=== PATIENT | male | born 1965 | race Native Hawaiian/Other Pacific Islander ===

== ENCOUNTER 2018-09-02 18:43 | Inpatient (IN) | payer MEDICARE, MEDICAID ==
[2018-09-02] MEDS ORDERED: Sodium Chloride 0.9% 1,000 ML IV ONE (18:55)
--- NOTE | 2018-09-02 19:01 | ED Physician Chart ---
ED Chief Complaint/HPI - Patient Information Date Seen:: 09/02/18 Time Seen:: 18:40 Chief Complaint:: Fever History of Present Illness:: onset x 3 days of fever, leg pain, redness, and swelling; no report of trauma, H /As, S/T, neck pain, cough, C/P, SOB, Abd. Pain, or urinary s/s Allergies:: Allergies Allergy/AdvReac Type Severity Reaction Status Date / Time Penicillins Allergy Verified 09/02/18 18:51 Sulfa (Sulfonamide Allergy Verified 09/02/18 18:52 Antibiotics) Tetanus Vaccines and Toxoid Allergy Verified 09/02/18 18:52 Historian:: Patient, EMS Review:: Nurse's Note Reviewed, Old Chart Reviewed, EMS run form Reviewed <Que Guillen - Last Filed: 09/02/18 18:58> - Patient Information Allergies:: Allergies Allergy/AdvReac Type Severity Reaction Status Date / Time Penicillins Allergy Verified 09/02/18 18:51 Sulfa (Sulfonamide Allergy Verified 09/02/18 18:52 Antibiotics) Tetanus Vaccines and Toxoid Allergy Verified 09/02/18 18:52 Vitals:: Vital Signs - 8 hr 09/02/18 09/02/18 09/02/18 18:52 19:27 20:36 Temp 102.7 F 98.6 F HR 105 96 97 RR 16 18 18 BP 149/100 150/94 O2 Sat % 97 97 97 <Oscar Zhang - Last Filed: 09/02/18 21:15> ED Review of Systems - Review of Systems General/Constitutional: No fever, No chills, No weight loss, No weakness, No diaphoresis, No edema, No loss of appetite Skin: No skin lesions, No rash, No bruising Head: No headache, No light-headedness Eyes: No loss of vision, No pain, No diplopia ENT: No earache, No nasal drainage, No sore throat, No tinnitus Neck: No neck pain, No swelling, No thyromegaly, No stiffness, No mass noted Cardio Vascular: No chest pain, No palpitations, No PND, No orthopnea, No edema Pulmonary: No SOB, No cough, No sputum, No wheezing GI: No nausea, No vomiting, No diarrhea, No pain, No melena, No hematochezia, No constipation, No hematemesis G/U: No dysuria, No frequency, No hematuria, No nacturia Musculoskeletal: No bone or joint pain, No back pain, No muscle pain Endocrine: No polyuria, No polydipsia Psychiatric: No prior psych history, No depression, No anxiety, No suicidal ideation, No homicidal ideation, No auditory hallucination, No visual hallucination Hematopoietic: No bruising, No lymphadenopathy Allergic/Immuno: No urticaria, No angioedema Neurological: No syncope, No focal symptoms, No weakness, No paresthesia, No headache, No seizure, No dizziness, No confusion, No vertigo <Que Guillen - Last Filed: 09/02/18 18:58> ED Past Medical History - Past Medical History Obtainable: Yes Past Medical History: HTN Family History: HTN Social History: Non Smoker, No Alcohol, No Drug Use, , Care Facility Surgical History: None Psychiatricy History: None Medication: Reviewed <Que Guillen Last Filed: 09/02/18 18:58> Family Medical History - Family Member Mother History Unknown: Yes <Que Guillen Last Filed: 09/02/18 18:58> ED Physical Exam - Physical Examination General/Constitutional: Awake, Well-developed, well-nourished, Alert, No distress, GCS 15, Non-toxic appearing, Ambulatory Head: Atraumatic Eyes: Lids, conjuctiva normal, PERRL, EOMI Skin: Nl inspection, No rash, No skin lesions, No ecchymosis, Well hydrated, No lymphadenopathy Other Skin comments:: + LE Cellulitis ENMT: External ears, nose nl, TM canals nl, Nasal exam nl, Lips, teeth, gums nl , Oropharynx nl, Tonsils nl Neck: Nontender, Full ROM w/o pain, No JVD, No nuchal rigidity, No bruit, No mass, No stridor Respiratory: Nl effort/Exclusion, Clear to Auscultation, No Wheeze/Rhonchi/Rales Cardio Vascular: RRR, No murmur, gallop, rubs, NL S1 S2 GI: No tenderness/rebounding/guarding, No organomegaly, No hernia, Normal BS's, Nondistended, No mass/bruits, No McBurney tenderness : No CVA tenderness Extremities: No tenderness or effusion, Full ROM, normal strength in all extremities, No edema, Normal digits & nails Neuro/Psych: Alert/oriented, DTR's symmetric, Normal sensory exam, Normal motor strength, Judgement/insight normal, Mood normal, Normal gait, No focal deficits Misc: Normal back, No paraspinal tenderness <Que Guillen - Last Filed: 09/02/18 18:58> ED Labs/Radiology/EKG Results - Lab Results Results: Laboratory Tests 09/02/18 09/02/18 09/02/18 19:15 19:15 19:15 WBC 9.2 RBC 3.74 L Hgb 12.1 Hct 35.1 L MCV 93.9 MCH 32.3 H MCHC Differential 34.4 RDW 13.0 Plt Count 316 MPV 5.7 Neutrophils % 68.6 Lymphocytes % 17.4 L Monocytes % 9.0 Eosinophils % 4.2 Basophils % 0.8 PT 9.7 INR 0.93 PTT (Actin FS) 31.6 Sodium 131 L Potassium 3.8 Chloride 97 L Carbon Dioxide 23.0 Anion Gap 14.8 BUN 11 Creatinine 0.6 L Est GFR ( Amer) > 60.0 Est GFR (Non-Af Amer) > 60.0 BUN/Creatinine Ratio 18.3 Glucose 151 H Whole Bld Lactic Acid Calcium 9.3 Total Bilirubin 0.3 AST 19 ALT 35 Alkaline Phosphatase 79 Creatine Kinase 86 Troponin I Total Protein 7.6 Albumin 3.7 L Globulin 3.9 Albumin/Globulin Ratio 1.0 09/02/18 19:15 WBC RBC Hgb Hct MCV MCH MCHC Differential RDW Plt Count MPV Neutrophils % Lymphocytes % Monocytes % Eosinophils % Basophils % PT INR PTT (Actin FS) Sodium Potassium Chloride Carbon Dioxide Anion Gap BUN Creatinine Est GFR ( Amer) Est GFR (Non-Af Amer) BUN/Creatinine Ratio Glucose Whole Bld Lactic Acid 1.29 Calcium Total Bilirubin AST ALT Alkaline Phosphatase Creatine Kinase Troponin I 0.01 Total Protein Albumin Globulin Albumin/Globulin Ratio Laboratory Last Values WBC 9.2 Th/cmm (4.8-10.8) 09/02/18 19:15 RBC 3.74 Mil/cmm (4.30-5.70) L 09/02/18 19:15 Hgb 12.1 gm/dL (12-16) 09/02/18 19:15 Hct 35.1 % (41.0-60) L 09/02/18 19:15 MCV 93.9 fl (80-99) 09/02/18 19:15 MCH 32.3 pg (26.0-30.0) H 09/02/18 19:15 MCHC Differential 34.4 pg (28.0-36.0) 09/02/18 19:15 RDW 13.0 % (11.5-20.0) 09/02/18 19:15 Plt Count 316 Th/cmm (150-400) 09/02/18 19:15 MPV 5.7 fl 09/02/18 19:15 Neutrophils % 68.6 % (40.0-80.0) 09/02/18 19:15 Lymphocytes % 17.4 % (20.0-50.0) L 09/02/18 19:15 Monocytes % 9.0 % (2.0-10.0) 09/02/18 19:15 Eosinophils % 4.2 % (0.0-5.0) 09/02/18 19:15 Basophils % 0.8 % (0.0-2.0) 09/02/18 19:15 PT 9.7 SECONDS (9.5-11.5) 09/02/18 19:15 INR 0.93 (0.5-1.4) 09/02/18 19:15 PTT (Actin FS) 31.6 SECONDS (26.0-38.0) 09/02/18 19:15 Sodium 131 mEq/L (136-145) L 09/02/18 19:15 Potassium 3.8 mEq/L (3.5-5.1) 09/02/18 19:15 Chloride 97 mEq/L (98-107) L 09/02/18 19:15 Carbon Dioxide 23.0 mEq/L (21.0-31.0) 09/02/18 19:15 Anion Gap 14.8 (7.0-16.0) 09/02/18 19:15 BUN 11 mg/dL (7-25) 09/02/18 19:15 Creatinine 0.6 mg/dL (0.7-1.3) L 09/02/18 19:15 Est GFR ( Amer) > 60.0 ml/min (>90) 09/02/18 19:15 Est GFR (Non-Af Amer) > 60.0 ml/min 09/02/18 19:15 BUN/Creatinine Ratio 18.3 09/02/18 19:15 Glucose 151 mg/dL (70-105) H 09/02/18 19:15 Whole Bld Lactic Acid 1.29 mmol/L (0.60-1.99) 09/02/18 19:15 Calcium 9.3 mg/dL (8.6-10.3) 09/02/18 19:15 Total Bilirubin 0.3 mg/dL (0.3-1.0) 09/02/18 19:15 AST 19 U/L (13-39) 09/02/18 19:15 ALT 35 U/L (7-52) 09/02/18 19:15 Alkaline Phosphatase 79 U/L (34-104) 09/02/18 19:15 Creatine Kinase 86 U/L (30-223) 09/02/18 19:15 Troponin I 0.01 ng/mL (0.01-0.05) 09/02/18 19:15 Total Protein 7.6 gm/dL (6.0-8.3) 09/02/18 19:15 Albumin 3.7 gm/dL (4.2-5.5) L 09/02/18 19:15 Globulin 3.9 gm/dL 09/02/18 19:15 Albumin/Globulin Ratio 1.0 (1.0-1.8) 09/02/18 19:15 Pending lab results: blood cultures. - Radiology Results Results: CXR (1v.): Based on my interpretation, poor inspiration; otherwise, NAD. Official report is pending. Pending report: Venous doppler of LLE. - EKG Interpretations EKG Time:: 19:29 Rate & Rhythm: Sinus tachycardia with VR 100 Comments:: LAE. No acute ischemic changes. <Oscar Zhang - Last Filed: 09/02/18 21:15> ED Septic Shock - . Is Septic Shock (SBP<90, OR Lactate>4 mmol\L) present?: No <Que Guillen - Last Filed: 09/02/18 18:58> - <6hrs of presentation: Vital Signs: Vital Signs - 8 hr 0709/02/18 09/02/18 18:52 19:27 20:36 Temp 102.7 F 98.6 F HR 105 96 97 RR 16 18 18 BP 149/100 150/94 O2 Sat % 97 97 97 <Oscar Zhang - Last Filed: 09/02/18 21:15> ED Reassessment (Disposition) - Reassessment Reassessment Condition:: Improved - Diagnosis Diagnosis:: Fever; Leg Pain; Leg Cellulitis <Que Guillen - Last Filed: 09/02/18 18:58> - Reassessment Reassessment:: 2104 Pt remains stable and comfortable. EKG, CXR, and available lab findings have been reviewed with pt. Management plan has been discussed. Case was discussed with Dr. Truong with pertinent info reviewed. Pt is to be admitted to [facility] under his care. - Diagnosis Diagnosis:: Left lower leg cellulitis. Mild hyperglycemia. - Patient Disposition Admitted to:: Med/Surg Admitting Medical Physician:: Prince Truong Time:: 21:10 Condition at Disposition:: Stable <Oscar Zhang - Last Filed: 09/02/18 21:15>
[2018-09-02 19:28] LABS: % BASOPHILS 0.8 % (0.0-2.0); % EOSINOPHILS 4.2 % (0.0-5.0); % LYMPHOCYTES 17.4 % (20.0-50.0); % NEUTROPHILS 68.6 % (40.0-80.0); BASOPHILE ABSOLUTE 0.1 Th/cumm (0-0.2); EOSINOPHILE ABSOLUTE 0.4 Th/cmm (0.1-0.4); HEMATOCRIT 35.1 % (41.0-60); HEMOGLOBIN 12.1 gm/dL (12-16); LYMPHOCYTE ABSOLUTE 1.6 Th/cmm (1.5-3.0); MEAN CELL VOLUME 93.9 fl (80-99); MEAN CORPUSCULAR HEMOGLOBIN 32.3 pg (26.0-30.0); MEAN CORPUSCULAR HGB CONC 34.4 pg (28.0-36.0); MONOCYTE ABSOLUTE 0.8 Th/cmm (0.3-1.0); NEUTROPHILE ABSOLUTE 6.3 Th/cmm (1.8-8.0); PLATELET COUNT 316 Th/cmm (150-400); RED BLOOD COUNT 3.74 Mil/cmm (4.30-5.70); WHITE BLOOD COUNT 9.2 Th/cmm (4.8-10.8)
[2018-09-02 19:43] LABS: ALBUMIN 3.7 gm/dL (4.2-5.5); ALKALINE PHOSPHATASE 79 U/L (34-104); ANION GAP 14.8 (7.0-16.0); BILIRUBIN,TOTAL 0.3 mg/dL (0.3-1.0); BUN - UREA NITROGEN 11 mg/dL (7-25); CALCIUM SERUM 9.3 mg/dL (8.6-10.3); CHLORIDE 97 mEq/L (98-107); CREATININE - SERUM 0.6 mg/dL (0.7-1.3); CREATININE KINASE 86 U/L (30-223); GFR AFRICAN-AMERICAN > 60.0 ml/min (>90); GFR NON AFRICAN-AMERICAN > 60.0 ml/min; GLUCOSE 151 mg/dL (70-105); POTASSIUM SERUM 3.8 mEq/L (3.5-5.1); SGOT 19 U/L (13-39); SGPT/ALT 35 U/L (7-52); SODIUM SERUM 131 mEq/L (136-145); TOTAL PROTEIN,SERUM 7.6 gm/dL (6.0-8.3)
[2018-09-02 19:45] LABS: INR 0.93 (0.5-1.4)
[2018-09-02] MEDS ORDERED: D5-0.45NS w/20 mEq KCL 1,000 ML IV ONE (22:39)
[2018-09-02] MEDS: D5-0.45NS w/20 mEq KCL 1,000 ML IV SCH (22:42)
[2018-09-03 05:18] LABS: % BASOPHILS 0.6 % (0.0-2.0); % EOSINOPHILS 5.4 % (0.0-5.0); % LYMPHOCYTES 30.9 % (20.0-50.0); % NEUTROPHILS 59.1 % (40.0-80.0); EOSINOPHILE ABSOLUTE 0.4 Th/cmm (0.1-0.4); HEMATOCRIT 34.5 % (41.0-60); HEMOGLOBIN 11.5 gm/dL (12-16); LYMPHOCYTE ABSOLUTE 2.5 Th/cmm (1.5-3.0); MEAN CELL VOLUME 96.6 fl (80-99); MEAN CORPUSCULAR HEMOGLOBIN 32.3 pg (26.0-30.0); MEAN CORPUSCULAR HGB CONC 33.4 pg (28.0-36.0); MONOCYTE ABSOLUTE 0.3 Th/cmm (0.3-1.0); NEUTROPHILE ABSOLUTE 4.8 Th/cmm (1.8-8.0); PLATELET COUNT 329 Th/cmm (150-400); RED BLOOD COUNT 3.57 Mil/cmm (4.30-5.70); RED CELL DISTRIBUTION WIDTH 12.7 % (11.5-20.0)
[2018-09-03 05:40] LABS: ALBUMIN 3.7 gm/dL (4.2-5.5); ALKALINE PHOSPHATASE 75 U/L (34-104); ANION GAP 12.4 (7.0-16.0); BILIRUBIN,TOTAL 0.4 mg/dL (0.3-1.0); BUN - UREA NITROGEN 9 mg/dL (7-25); CALCIUM SERUM 9.1 mg/dL (8.6-10.3); CARBON DIOXIDE 24.7 mEq/L (21.0-31.0); CHLORIDE 99 mEq/L (98-107); CREATININE - SERUM 0.5 mg/dL (0.7-1.3); GFR AFRICAN-AMERICAN > 60.0 ml/min (>90); GFR NON AFRICAN-AMERICAN > 60.0 ml/min; GLUCOSE 121 mg/dL (70-105); POTASSIUM SERUM 4.1 mEq/L (3.5-5.1); SGOT 17 U/L (13-39); SGPT/ALT 30 U/L (7-52); SODIUM SERUM 132 mEq/L (136-145); TOTAL PROTEIN,SERUM 7.4 gm/dL (6.0-8.3)
[2018-09-03 08:03] VITALS: BP 136/72
--- NOTE | 2018-09-03 08:09 | Diagnostic Imaging Report ---
Portable chest x-ray History: Pain There is a poor inspiration. Allowing for portable technique the heart size is normal. No focal pulmonary parenchymal processes. No hilar or mediastinal abnormalities. Impression: No acute abnormalities.
--- NOTE | 2018-09-03 08:11 | Diagnostic Imaging Report ---
Bilateral lower extremity Doppler venous ultrasound exam HISTORY: Pain/swelling Sonographic sector images were obtained through the deep venous systems of both legs. Associated Doppler data was obtained. The exam demonstrates patency of the common femoral, superficial femoral, popliteal, and posterior tibial veins bilaterally. Specifically, no thrombus is seen. There are normal compressibility and augmentation responses. An approximate 2.7 x 1.2 x 2.4 cm sonolucent cystic focus seen within the soft tissues within the left popliteal area. Findings consistent with a popliteal/Grimes's cyst. IMPRESSION: 1. Negative exam for deep vein thrombophlebitis. 2. Findings consistent with the left side popliteal/Grimes's cyst
[2018-09-03 09:47] LABS: URINE SOURCE MIDSTREAM
[2018-09-03 09:54] LABS: URINE BILIRUBIN NEGATIVE (NEGATIVE); URINE BLOOD NEGATIVE (NEGATIVE); URINE GLUCOSE (UA) NEGATIVE (NEGATIVE); URINE KETONE NEGATIVE (NEGATIVE); URINE LEUKOCYTE ESTERASE NEGATIVE (NEGATIVE); URINE NITRATE NEGATIVE (NEGATIVE); URINE PH 6.5 (4.6 - 8.0); URINE PROTEIN NEGATIVE (NEGATIVE); URINE UROBILINOGEN 0.2 E.U./dL (0.2 - 1.0)
[2018-09-03 10:14] LABS: URINE CLARITY CLEAR (CLEAR); URINE COLOR YELLOW; URINE MICROSCOPIC INDICATED? YES
[2018-09-03 10:16] LABS: URINE BACTERIA FEW /hpf (NONE SEEN); URINE EPITHELIAL CELLS FEW /lpf (FEW); URINE RBC 0-2 /hpf (0-5); URINE WBC 0-2 /hpf (0-5)
[2018-09-03] MEDS: D5-0.45NS w/20 mEq KCL 1,000 ML IV SCH (11:58)
--- NOTE | 2018-09-03 20:58 | History & Physical ---
ADMIT DATE: 09/02/2018 CHIEF COMPLAINT: Cellulitis of left lower extremity. HISTORY OF PRESENT ILLNESS: The patient is a 53-year-old male with long history of psychosis, admitted to [facility] with cellulitis of left lower extremity. The patient is a poor historian. No fever, no chills, no nausea, no vomiting. The patient was started on IV fluid, antibiotic. PAST MEDICAL HISTORY: Significant for psychosis. PAST SURGICAL HISTORY: No recent surgery. ALLERGIES: PENICILLIN. MEDICATIONS: Follow admission reconciliation. SOCIAL HISTORY: No smoking, no alcohol, no drug. FAMILY HISTORY: Noncontributory. REVIEW OF SYSTEMS: IMMUNO SYSTEM: No history of chronic immuno disorder. CARDIOVASCULAR SYSTEM: No coronary artery disease. ENDOCRINE SYSTEM: No diabetes or thyroid problem. GASTROINTESTINAL SYSTEM: No upper or lower gastrointestinal bleeding. NEUROLOGICAL SYSTEM: Seizure disorder. SKELETOMUSCULAR SYSTEM: No muscular dystrophy. HEMATOLOGIC SYSTEM: No bleeding tendencies. RESPIRATORY SYSTEM: No asthma. GENITOURINARY: No dysuria or hematuria. PHYSICAL EXAMINATION: GENERAL: He is awake, not coherent. VITAL SIGNS: Temperature is 97.1, heart rate 84, blood pressure 130/89. HEENT: Normocephalic. Pupils reacting equally to light and accommodation. Sclerae clear. NECK: Supple. Negative for lymphadenopathy, JVD or bruit. CHEST: Bilaterally normal. No rhonchi or wheezing. HEART: S1, S2 normal. No murmur or gallop. ABDOMEN: Soft, bowel sounds positive. EXTREMITIES: No edema. NEUROLOGIC: He is awake, alert, not fully oriented. SKIN: Significant for redness of left lower extremity. LABORATORY DATA: His white blood cell 8, hemoglobin 11.5, hematocrit 34.5, platelet is 329. Sodium 132, potassium 4.1, BUN 9, creatinine 0.5. ASSESSMENT: 1. Cellulitis of left lower extremity. 2. Mild anemia. 3. Psychosis. PLAN: The patient admitted to the hospital under Dr. Truong's service, started on IV fluid, IV antibiotic. Resume his medication and diet. The patient is a full code. JOB# [id number]
--- NOTE | 2018-09-04 10:58 | Consultation ---
DATE OF CONSULTATION: 09/04/2018 PSYCHIATRIC CONSULT AGE: 53. SEX: Male. PHYSICIAN: Dr. Truong. TOOL AND FIXTURE REPAIRER: Dr. Gonzalez. TYPE OF THE REPORT: Psychiatric consult. REASON FOR THE CONSULT: Psychosis and evaluation of his psych condition. HISTORY OF PRESENT ILLNESS: The patient is a 53-year-old male who was admitted in the hospital because of swollen left leg. The patient has history of schizophrenia and Dr. Truong asked me to evaluate the patient. "I am 2," when I asked him about his age. The patient also was actively hallucinating and talking to himself when I was trying to talk to him and he kept talking to himself. He also was counting. When I asked him about where he lives, "in the [facility]." The patient was confused and was not able to answer any of my questions currently. PAST PSYCHIATRIC HISTORY: The patient has history of what seems to be schizophrenia. PAST MEDICAL HISTORY: The patient was admitted with cellulitis of left leg. No other known medical problems at this time. SOCIAL HISTORY: The patient lives in [facility]. No known alcohol or drug use. The patient has a sister that is involved in his treatment. Otherwise, the patient is single and never and has no children. He belongs to [facility] for developmental disability. ALLERGIES: The patient is allergic to PENICILLIN, SULFA and TETANUS. MENTAL STATUS EXAM: The patient appears his stated age. Anxious. Confused. Actively hallucinating and actively talking to himself. The patient did not answer questions regarding hallucinations or delusions or suicide or homicide. The patient was actively talking to self and actively hallucinating. The patient did not answer questions to assess his orientation or memory, but the patient is confused and thinks he lives in the [facility] and he is 3 years old and he did not know what is today's date. Poor insight and poor judgment. Impaired memory. ASSESSMENT: PRIMARY DIAGNOSIS: Chronic paranoid schizophrenia with acute exacerbation. SECONDARY DIAGNOSIS: Mental retardation, moderate to severe. TREATMENT PLAN: We will monitor the patient's condition and we will continue current psychotropic medications. Also, we will work on his agitation and irritability. Thanks to Dr. Truong and we will followup with you. JOB# [id number]
[2018-09-04] MEDS: Benztropine 1 MG TAB PO SCH ×2 (11:14→16:09)
[2018-09-04] MEDS: D5-0.45NS w/20 mEq KCL 1,000 ML IV SCH ×2 (11:14→13:00)
[2018-09-04] MEDS: Enoxaparin 40 mg/0.4 mL 0.4mL Syr SUBQ SCH (11:15)
[2018-09-04] MEDS: PALIPERIDONE 3 MG PO SCH (11:18)
[2018-09-04 12:00] LABS: CREATININE - SERUM 0.6 mg/dL (0.7-1.3)
--- NOTE | 2018-09-04 13:20 | Internal Medicine Prog Note ---
Internal Medicine Subjective - Subjective Service Date: 09/04/18 Patient seen and examined:: with staff (HE IS LESS AGITATED,EATING WELL) Patient is:: awake, non-verbal, in bed, confused Per staff patient has:: no adverse event Internal Medicine Objective - Results Result Diagrams: 09/03/18 04:15 09/04/18 06:30 Recent Labs: Laboratory Last Values WBC 8.0 Th/cmm (4.8-10.8) 09/03/18 04:15 RBC 3.57 Mil/cmm (4.30-5.70) L 09/03/18 04:15 Hgb 11.5 gm/dL (12-16) L 09/03/18 04:15 Hct 34.5 % (41.0-60) L 09/03/18 04:15 MCV 96.6 fl (80-99) 09/03/18 04:15 MCH 32.3 pg (26.0-30.0) H 09/03/18 04:15 MCHC Differential 33.4 pg (28.0-36.0) 09/03/18 04:15 RDW 12.7 % (11.5-20.0) 09/03/18 04:15 Plt Count 329 Th/cmm (150-400) 09/03/18 04:15 MPV 6.0 fl 09/03/18 04:15 Neutrophils % 59.1 % (40.0-80.0) 09/03/18 04:15 Lymphocytes % 30.9 % (20.0-50.0) 09/03/18 04:15 Monocytes % 4.0 % (2.0-10.0) 09/03/18 04:15 Eosinophils % 5.4 % (0.0-5.0) H 09/03/18 04:15 Basophils % 0.6 % (0.0-2.0) 09/03/18 04:15 PT 9.7 SECONDS (9.5-11.5) 09/02/18 19:15 INR 0.93 (0.5-1.4) 09/02/18 19:15 PTT (Actin FS) 31.6 SECONDS (26.0-38.0) 09/02/18 19:15 Sodium 132 mEq/L (136-145) L 09/03/18 04:15 Potassium 4.1 mEq/L (3.5-5.1) 09/03/18 04:15 Chloride 99 mEq/L (98-107) 09/03/18 04:15 Carbon Dioxide 24.7 mEq/L (21.0-31.0) 09/03/18 04:15 Anion Gap 12.4 (7.0-16.0) 09/03/18 04:15 BUN 8 mg/dL (7-25) 09/04/18 06:30 Creatinine 0.6 mg/dL (0.7-1.3) L 09/04/18 06:30 Est GFR ( Amer) > 60.0 ml/min (>90) 09/03/18 04:15 Est GFR (Non-Af Amer) > 60.0 ml/min 09/03/18 04:15 BUN/Creatinine Ratio 18.0 09/03/18 04:15 Glucose 121 mg/dL (70-105) H 09/03/18 04:15 POC Glucose 128 MG/DL (70 - 105) H 09/02/18 23:25 Whole Bld Lactic Acid 1.29 mmol/L (0.60-1.99) 09/02/18 19:15 Calcium 9.1 mg/dL (8.6-10.3) 09/03/18 04:15 Total Bilirubin 0.4 mg/dL (0.3-1.0) 09/03/18 04:15 AST 17 U/L (13-39) 09/03/18 04:15 ALT 30 U/L (7-52) 09/03/18 04:15 Alkaline Phosphatase 75 U/L (34-104) 09/03/18 04:15 Creatine Kinase 86 U/L (30-223) 09/02/18 19:15 Troponin I 0.01 ng/mL (0.01-0.05) 09/02/18 19:15 Total Protein 7.4 gm/dL (6.0-8.3) 09/03/18 04:15 Albumin 3.7 gm/dL (4.2-5.5) L 09/03/18 04:15 Globulin 3.7 gm/dL 09/03/18 04:15 Albumin/Globulin Ratio 1.0 (1.0-1.8) 09/03/18 04:15 Urine Source MIDSTREAM 07/23/19 09:35 Urine Color YELLOW 09/03/18 09:35 Urine Clarity CLEAR (CLEAR) 09/03/18 09:35 Urine pH 6.5 (4.6 - 8.0) 09/03/18 09:35 Ur Specific [place] 1.010 (1.005-1.030) 09/03/18 09:35 Urine Protein NEGATIVE mg/dL (NEGATIVE) 09/03/18 09:35 Urine Glucose (UA) NEGATIVE mg/dL (NEGATIVE) 09/03/18 09:35 Urine Ketones NEGATIVE mg/dL (NEGATIVE) 09/03/18 09:35 Urine Blood NEGATIVE (NEGATIVE) 09/03/18 09:35 Urine Nitrate NEGATIVE (NEGATIVE) 09/03/18 09:35 Urine Bilirubin NEGATIVE (NEGATIVE) 09/03/18 09:35 Urine Urobilinogen 0.2 E.U./dL (0.2 - 1.0) 09/03/18 09:35 Ur Leukocyte Esterase NEGATIVE (NEGATIVE) 09/03/18 09:35 Urine RBC 0-2 /hpf (0-5) H 09/03/18 09:35 Urine WBC 0-2 /hpf (0-5) 09/03/18 09:35 Ur Epithelial Cells FEW /lpf (FEW) 09/03/18 09:35 Urine Bacteria FEW /hpf (NONE SEEN) 09/03/18 09:35 Vancomycin Trough 37.3 ug/mL (5-10) H 09/04/18 06:30 - Physical Exam Vitals and I&O: Vital Signs Temp 96.2 F 09/04/18 12:00 Pulse 86 09/04/18 12:00 Resp 18 09/04/18 12:00 BP 128/87 09/04/18 12:00 Pulse Ox 99 09/04/18 12:00 Intake & Output 09/03/18 09/04/18 09/04/18 18:59 06:59 18:59 Intake Total 1245 1000 132.5 Balance 1245 1000 132.5 Intake: Intake, IV Amount 1245 1000 132.5 D5-0.45NS w/20 mEq KCL 1, 995 1000 132.5 000 ml @ 75 mls/hr IV . [id number] [facility] Rx#:[id number] Vancomycin HCl 1 gm In 250 Sodium Chloride 0.9% 250 ml @ 165 mls/hr IV Q8H [facility] Rx#:[id number] Other: Stool Characteristics Soft Soft Soft Brown Brown Active Medications: Current Medications Acetaminophen (Tylenol) 650 mg PO Q6H PRN PRN Reason: Pain or Fever >101 Stop: 11/01/18 22:04 Last Admin: 09/02/18 23:58 Dose: 650 mg Benztropine Mesylate (Cogentin) 1 mg PO BID [facility] Stop: 11/03/18 08:59 Last Admin: 09/04/18 11:14 Dose: 1 mg Carbamazepine (Tegretol) 100 mg PO DAILY [facility]; Protocol Stop: 11/03/18 08:59 Last Admin: 09/04/18 11:17 Dose: Not Given Divalproex Sodium (Depakote Dr) 1,000 mg PO DAILY [facility]; Protocol Stop: 11/03/18 08:59 Last Admin: 09/04/18 11:17 Dose: Not Given Docusate Sodium (Colace) 250 mg PO DAILY [facility] Stop: 11/03/18 08:59 Last Admin: 09/04/18 11:14 Dose: 250 mg Enoxaparin Sodium (Lovenox) 40 mg SUBQ DAILY [facility] Stop: 11/03/18 08:59 Last Admin: 09/04/18 11:15 Dose: 40 mg Potassium Chloride/Dextrose/Sod Cl (D5-0.45ns W/20 Meq Kcl) 1,000 mls @ 75 mls/ hr IV .[id number] [facility] Stop: 11/01/18 21:59 Last Admin: 09/04/18 13:00 Dose: 75 mls/hr Vancomycin HCl 1.25 gm/ Sodium (Chloride) 250 mls @ 165 mls/hr IV Q12H [facility] Stop: 11/03/18 20:59 Miscellaneous (Vancomycin Iv Per Pharmacy) 1 ea [facility] PRN PRN PRN Reason: PROTOCOL Stop: 11/01/18 21:12 Miscellaneous (Paliperidone [Invega]) 3 mg PO DAILY [facility] Stop: 11/03/18 08:59 Last Admin: 09/04/18 11:18 Dose: Not Given Olanzapine (Zyprexa) 10 mg PO DAILY [facility]; Protocol Stop: 11/03/18 08:59 General: demented HEENT: NC/AT, PERRLA, EOMI, anicteric sclerae, throat clear Neck: Supple, No JVD, No thyromegaly, +2 carotid pulse wo bruit, No LAD Lungs: CTAB Cardiovascular: RRR, Normal S1, Normal S2, without murmur Abdomen: soft, non-tender, non-distended Extremities: other (REDNESS OF LEFT LOWER EXTREM.SKIN) Neurological: no change Internal Medicine Assmt/Plan - Assessment Assessment: 1.CELLULITIS OF LEFT LOWER EXTREM - Plan Plan: CONTINUE ON CURRENT MEDICATION AND DIET.
[2018-09-05] MEDS: D5-0.45NS w/20 mEq KCL 1,000 ML IV SCH ×2 (03:22→16:15)
[2018-09-05] MEDS: Benztropine 1 MG TAB PO SCH ×2 (08:35→16:15)
[2018-09-05] MEDS: Enoxaparin 40 mg/0.4 mL 0.4mL Syr SUBQ SCH (08:35)
[2018-09-05] MEDS: PALIPERIDONE 3 MG PO SCH (08:36)
--- NOTE | 2018-09-05 18:56 | Progress Notes ---
DATE: SUBJECTIVE: Chart reviewed and the patient interviewed. Also discussed the patient's condition with the staff and reviewed records and labs. The patient is calmer, less agitated and less irritable. He still seems to be suspicious and paranoid and unable to carry on coherent conversation, but at the same time, no major behavioral problems. The patient also is compliant with taking his psych medications with no side effects. ASSESSMENT: The patient is still psychotic, but no major behavioral problems. TREATMENT PLAN: Continue to monitor his behavior and his condition closely. Also, continue adjusting psychotropic medications. JOB# [id number]
== END 2018-09-05 18:20 | DRG 603 ==
LOC: ER 18:43 → MSI 21:19
PROVIDERS: ADMIT Family Medicine; ATTEND Family Medicine
DX: L03.116 Cellulitis of left lower limb (principal); F20.0 Paranoid schizophrenia; F72 Severe intellectual disabilities; G93.40 Encephalopathy, unspecified; I10 Essential (primary) hypertension; R73.9 Hyperglycemia, unspecified; D64.9 Anemia, unspecified; F29 Unspecified psychosis not due to a substance or known physiological condition; Z88.0 Allergy status to penicillin; Z88.2 Allergy status to sulfonamides; Z88.7 Allergy status to serum and vaccine
CPT/HCPCS: 36415-UA; 71045-TC; 80053-TC; 80202-TC; 81001-TC; 82550-TC; 82565-TC; 82948-90; 83605; 84484-TC; 84520-TC; 85025-TC; 85610-TC; 85730-TC; 90784; 93005; 93970-TC-50; J1650; J2543; J3370; J7030; Z7610